=== PATIENT | male | born 1985 | race Caucasian/White ===

== ENCOUNTER 2017-03-01 08:46 | Emergency (ER) | payer OTHER ==
[~2017-03-01] VITALS: Ht 175.3 cm; Wt 75.5 kg
[2017-03-01 08:48] VITALS: BP 151/69; PULSE 92; RESP 20; TEMP 98.5; O2SAT 100
[2017-03-01] MEDS ORDERED: ACETAMINOPHEN/HYDROcodone 325 MG/5 MG TAB PO ONE (09:30)
[2017-03-01] MEDS ORDERED: NAPROXEN 500 MG TAB PO ONE (09:30)
[2017-03-01] MEDS ORDERED: CLINDAMYCIN PHOS 600 MG/4 ML VIAL IM ONE (09:30)
[2017-03-01] MEDS ORDERED: NAPR500 PO (10:19)
[2017-03-01] MEDS ORDERED: HYDR-3533 PO (10:19)
[2017-03-01] MEDS ORDERED: CLIN1CAP6 PO (10:19)
--- NOTE | 2017-03-01 10:19 | PD ---
HPI Chief Complaint: Skin Problem Time Seen by Provider: 09:15 Travel History International Travel<30 days: No Contact w/Intl Traveler<30days: No Traveled to known affect area: No History of Present Illness HPI 32-year-old man who presents emergent problem with pain and redness in the right side of his nose. He's had pain tenderness swelling ongoing for couple days. Taking subtly worse. He tried to squeeze it and drain it but it didn't really help. This started as a small pimple on the outside of the nose. He had some subjective fevers last night. He describes a little bit a headache and pain behind his eye. He has describes pain in his teeth. No double vision for a physician. He has had some tearing. No history of previous similar symptoms. No other complaints. History Past Medical History Medical History: Denies Significant Hx Tetanus Vaccination: Unknown Past Surgical History Surgical History: No Previous Surgery Social History Alcohol Use: No Tobacco Use: No Allergies-Medications (Allergen,Severity, Reaction): Coded Allergies: No Known Allergies (Verified Allergy, Unknown, 03/01/17) Review of Systems Except as stated in HPI: all other systems reviewed are Neg Physical Exam Narrative GENERAL: Well-appearing 32-year-old man, no acute distress. SKIN: Focused skin assessment warm/dry. HEAD: Atraumatic. Normocephalic. EYES: Pupils equal and round. No scleral icterus. No injection or drainage. ENT: No nasal bleeding or discharge. Mucous membranes pink and moist. Right side of the nose is erythematous red extremely tender. There is no palpable fluctuance. There is no periorbital swelling redness or tenderness. A little bit tearing to the right eye. He has full extraocular movements. NECK: Trachea midline. No JVD. CARDIOVASCULAR: Regular rate and rhythm. No murmur appreciated. RESPIRATORY: No accessory muscle use. Clear to auscultation. Breath sounds equal bilaterally. GASTROINTESTINAL: Abdomen soft, non-tender, nondistended. Hepatic and splenic margins not palpable. MUSCULOSKELETAL: No obvious deformities. No clubbing. No cyanosis. No edema. Data Data Last Documented VS Vital Signs Date Time Temp Pulse Resp B/P (MAP) Pulse Ox O2 Delivery O2 Flow Rate FiO2 03/01/17 08:57 18 03/01/17 08:48 98.5 92 151/69 (96) 100 Room Air Orders Orders Clindamycin Inj (Cleocin Inj) (03/01/17 09:30) Naproxen (Naprosyn) (03/01/17 09:30) Acetamin-Hydrocod 325-5 Mg ([place] 5-325 (03/01/17 09:30) [facility] Medical Decision Making Medical Screen Exam Complete: Yes Emergency Medical Condition: Yes Differential Diagnosis Cellulitis, periorbital cellulitis, dural vein thrombosis, other Narrative Course Is a well-appearing 32-year-old who has a soft tissue infection on the right side of his nose. These antibiotics. The concern is that he would be at risk for something like dural vein thrombosis or septic thrombosis. I don't think he has this now. He looks overall well. I think the pain behind the eye and in the teeth is probably referred from the nerve inflammation. Nonetheless this was discussed in detail with the patient and the family. They understand that this infection can spread on the face as well as spread backward toward the brain. If he is not rapidly improving or if he develops any worsening symptoms they will return immediately to the emergency department. Diagnosis Primary Impression: Facial cellulitis Patient Instructions: General Instructions Additional Instructions: Take antibiotics as prescribed. Take pain medicine as needed. Return emergent return immediately for any worsening pain redness swelling fevers or any other new or worsening symptoms. Follow-up with your primary doctor in 2-4 days for repeat evaluation. Med/Other Pt SpecificInfo: Prescription(s) given Scripts Clindamycin (Clindamycin) 300 Mg Cap 600 MG PO Q8H for Infection for 10 Days, CAP 0 Refills Prov: Prieto Tapia MD 03/01/17 Naproxen (Naprosyn) 500 Mg Tab 500 MG PO BID Y for PAIN SCALE 1 TO 10, #20 TAB 0 Refills Prov: Prieto Tapia MD 03/01/17 Hydrocodone-Acetaminophen (Lortab) 5-325 Mg Tab 1-2 TAB PO Q6H Y for PAIN, #12 TAB 0 Refills Prov: Prieto Tapia MD 03/01/17 Disposition: 01 DISCHARGE HOME Condition: Stable Prieto Tapia MD Mar 01, 2017 10:19
== END 2017-03-01 10:36 | disposition home or self-care (01) ==
LOC: NEPD 08:46
DX: J34.0 Abscess, furuncle and carbuncle of nose (principal)
CPT/HCPCS: 96372